=== PATIENT | male | born 1945 | race Caucasian/White ===

== ENCOUNTER 2019-02-13 07:20 | Emergency (ER) | payer MEDICARE, BC, OTHER ==
[2019-02-13 07:26] VITALS: BP 156/78
[2019-02-13] MEDS ORDERED: DOXYCYCLINE HYCLATE 100 MG TABLET PO ONE (08:00)
--- NOTE | 2019-02-13 08:06 | ER Document Report ---
ED General - General Chief Complaint: Insect Bite Stated Complaint: POSSIBLE INSECT BITE Time Seen by Provider: 02/13/19 07:46 TRAVEL OUTSIDE OF THE [place] IN LAST 30 DAYS: No - HPI Notes: Patient is a 74-year-old male that presents to the emergency department for chief complaint of left leg rash. Patient states he was working out in the [employer] in [place] about 10 days ago. He noticed a small red bump on the medial aspect of his left lower extremity. He states that the area became more red over the next few days and he was seen at an urgent care and diagnosed with a local cellulitis. Patient was placed on an antibiotic but states it did not change his symptoms. He states the area has continued to increase in redness. He denies any associated fevers, chills, body aches, itching or pain at the bite site. He does state that he takes steroids for Crohn's disease and has a decreased immune system. He states he is concerned for possible Lyme disease. He denies seeing any insect that bit him or tick. Past Medical History: Crohn's disease Past Surgical History: Multiple bowel resections Social History: Denies drugs alcohol and tobacco Family History: Reviewed and noncontributory for presenting illness Allergies: Reviewed, see documented allergy list. REVIEW OF SYSTEMS: CONSTITUTIONAL : No fever No chills No diaphoresis No recent illness EENT: No vision changes No congestion No sore throat CARDIOVASCULAR: No chest pain No palpitations RESPIRATORY: No shortness of breath No cough No difficulty breathing GASTROINTESTINAL: No abdominal pain No nausea No vomiting No diarrhea GENITOURINARY: No dysuria No hematuria No difficulty urinating MUSCULOSKELETAL: No back pain No leg pain No arm pain SKIN: rashes No lesions LYMPHATIC: No swollen, enlarged glands. NEUROLOGICAL: No lightheadedness No headache No weakness No paresthesias PSYCHIATRIC: No anxiety No depression PHYSICAL EXAMINATION: Vital signs reviewed, nursing noted reviewed. GENERAL: Well-appearing, well-nourished and in no acute distress. HEAD: Atraumatic, normocephalic. EYES: Eyes appear normal, extraocular movements intact, sclera anicteric, conjunctiva are normal. ENT: nares patent, oropharynx clear without exudates. Moist mucous membranes. NECK: Normal range of motion, supple without lymphadenopathy LUNGS: Breath sounds clear to auscultation bilaterally and equal. No wheezes rales or rhonchi. HEART: Regular rate and rhythm without murmurs ABDOMEN: Soft, nontender, normoactive bowel sounds. No rebound, guarding, or rigidity. No masses appreciated. EXTREMITIES: Nontender, good range of motion, no pitting or edema. NEUROLOGICAL: No focal neurological deficits. Moves all extremities spontaneously Motor and sensory grossly intact on exam. PSYCH: Normal mood, normal affect. SKIN: Warm, Dry, normal turgor, erythematous target lesion to medial left lower extremity with no Rehan, vesicles, pustules or tenderness to palpation - Related Data Allergies/Adverse Reactions: No Known Allergies Allergy (Verified 02/13/19 07:22) Past Medical History - Social History Smoking Status: Former Smoker Chew tobacco use (# tins/day): No Frequency of alcohol use: None Drug Abuse: None Family History: Reviewed & Not Pertinent Patient has suicidal ideation: No Patient has homicidal ideation: No Renal/ Medical History: Denies: Hx Peritoneal Dialysis GI Medical History: Reports: Hx Gastroesophageal Reflux Disease Musculoskeletal Medical History: Reports Hx Arthritis Past Surgical History: Reports: Hx Abdominal Surgery - bowel resection x 4, Hx Orthopedic Surgery - back and bilateral thumbs. Physical Exam - Vital signs Vitals: Temp Pulse Resp BP Pulse Ox 97.7 F 73 18 156/78 H 99 02/13/19 07:25 02/13/19 07:25 02/13/19 07:25 02/13/19 07:25 02/13/19 07:25 Course - Re-evaluation Re-evalutation: 02/13/19 08:06 Vitals reviewed. Nursing notes reviewed. Patient has a target lesion on his left lower extremity where the insect bit him concerning for possible Lyme disease. He will be started on doxycycline. Lyme titers and [place] spotted fever titers have been drawn today. Patient will be referred to primary care for follow-up and was instructed on receiving his lab results. He was also counseled on return precautions. His first dose of doxycycline was given in the emergency room. He is stable at discharge. - Vital Signs Vital signs: Temp Pulse Resp BP Pulse Ox 97.7 F 73 18 156/78 H 99 02/13/19 07:25 02/13/19 07:25 02/13/19 07:25 02/13/19 07:25 02/13/19 07:25 Discharge - Discharge Clinical Impression: Rash and nonspecific skin eruption Condition: Stable Disposition: HOME, SELF-CARE Instructions: Lyme Disease ([facility]) Additional Instructions: Please return to the emergency department if you have any worsening, or concern of your symptoms. Please return to the emergency department if you develop chest pain, difficulty breathing, severe abdominal pain, or ongoing vomiting. Please follow-up with your primary care physician in 2-3 days and any other recommended physicians. If prescribed, take all medications as directed. If you have any questions or concerns do not hesitate to return the emergency department for evaluation. They was drawn to test you for Lyme disease and [place] spotted fever. These test take a few days to result. Please call the hospital for test results if you do not hear from us in 3 to 5 days. Prescriptions: Doxycycline Hyclate 100 mg PO BID #28 capsule Referrals: [facility] [Provider Group] - Follow up in 1 week
[2019-02-15 15:57] LABS: LYME DISEASE IGM AB <0.80 index (0.00-0.79)
== END 2019-02-13 08:32 | disposition home or self-care (01) ==
LOC: ER 07:20
DX: R21 Rash and other nonspecific skin eruption (principal); Z79.52 Long term (current) use of systemic steroids
CPT/HCPCS: 99282; 36415; 86757; 86618 ×2; 86617 ×2; A9270

== ENCOUNTER 2019-02-15 08:13 | Emergency (ER) | payer MEDICARE, BC, OTHER ==
--- NOTE | 2019-02-15 09:18 | ER Document Report ---
HPI - HPI Time Seen by Provider: 02/15/19 08:57 Pain Level: Denies Context: Patient is a 74-year-old male who presents the emergency department with a chief complaint of bug bites to his bilateral posterior ankles. He was seen 2 days ago and was placed on doxycycline for a tick bite. He states that he has not had any increase in redness or spread of the rash from his previous tick bite. Yesterday he put his boots on and noticed that he got 2 more bites on the po sterior aspects of his ankles. Lab work was done 2 days ago when he was here in the emergency department, but results are not back yet. He has an extensive past medical history of Crohn's, degenerative joint disease, vitamin B12 deficiency, osteoarthritis, anemia, and Crohn's disease. He denies any significant fevers or any other symptoms. Denies any pruritus. He is currently on doxycycline 100 mg twice daily. - CONSTITUTIONAL Constitutional: DENIES: Fever, Chills - EENT EENT: DENIES: Sore Throat, Congestion, Eye problems - NEURO Neurology: DENIES: Headache - CARDIOVASCULAR Cardiovascular: DENIES: Chest pain - RESPIRATORY Respiratory: DENIES: Trouble Breathing, Coughing - GASTROINTESTINAL Gastrointestinal: DENIES: Abdominal Pain - DERM Skin Color: Normal Skin Problems: Rash - Bilateral posterior ankles, medial left thigh Past Medical History - Social History Smoking Status: Never Smoker Chew tobacco use (# tins/day): No Frequency of alcohol use: Rare Drug Abuse: None Family History: Reviewed & Not Pertinent Patient has suicidal ideation: No Patient has homicidal ideation: No Renal/ Medical History: Denies: Hx Peritoneal Dialysis GI Medical History: Reports: Hx Gastroesophageal Reflux Disease Musculoskeletal Medical History: Reports Hx Arthritis Past Surgical History: Reports: Hx Abdominal Surgery - bowel resection x 4, Hx Orthopedic Surgery - back and bilateral thumbs. Vertical Provider Document - CONSTITUTIONAL Agree With Documented VS: Yes Exam Limitations: No Limitations General Appearance: No Apparent Distress - INFECTION CONTROL TRAVEL OUTSIDE OF THE [place] IN LAST 30 DAYS: No - HEENT HEENT: Atraumatic, Normocephalic, PERRLA - NECK Neck: Normal Inspection - RESPIRATORY Respiratory: Breath Sounds Normal, No Respiratory Distress - CARDIOVASCULAR Cardiovascular: Regular Rate, Regular Rhythm Pulses: Normal: Radial - MUSCULOSKELETAL/EXTREMETIES Musculoskeletal/Extremeties: FROM, Non-Tender - NEURO Level of Consciousness: Awake, Alert, Appropriate Motor/Sensory: No Motor Deficit, No Sensory Deficit - DERM Integumentary: Warm, Dry, Rash - Left medial calf, bull's-eye appearance, consistent with tick bite. Bilateral posterior ankles, bull's-eye appearance, consistent with tick bites Course - Re-evaluation Re-evalutation: 02/15/19 09:22 Patient's physical exam is consistent with tick bites. He is nontoxic in appearance. Has been afebrile. His labs are not back yet. I advised the patient to continue his doxycycline. He is in agreement with this plan. He will follow also follow-up with his primary care provider in regards to this visit. He is visiting and will be here until November, but is going to make an appointment today with a PCP. Verbal discharge instructions were given to the patient. They verbalized understanding. They are stable for discharge. Discharge - Discharge Clinical Impression: Rash Condition: Stable Disposition: HOME, SELF-CARE Additional Instructions: You are seen today in the emergency department for 2 more bites on the back of your ankles. Please continue your doxycycline you are currently on. Please fo llow-up with the primary care provider you chose. If you have worsening symptoms, develop a fever higher than your normal temperature, or have any symptoms that are worrisome to you, please return to the emergency department. Referrals: [facility] [Provider Group] - Follow up as needed
== END 2019-02-15 09:26 | disposition home or self-care (01) ==
LOC: ER 08:13
DX: R21 Rash and other nonspecific skin eruption (principal); T14.8XXA Other injury of unspecified body region, initial encounter; W57.XXXA Bitten or stung by nonvenomous insect and other nonvenomous arthropods, initial encounter
CPT/HCPCS: 99282